=== PATIENT | male | born 1970 | race Native Hawaiian/Other Pacific Islander ===

== ENCOUNTER 2021-11-09 18:03 | Emergency (ER) | payer OTHER ==
[~2021-11-09] VITALS: Ht 177.8 cm; Wt 99.8 kg
[2021-11-09 19:14] LABS: PLATELET COUNT 264 K/uL (142-355)
[2021-11-09 19:20] LABS: POTASSIUM 3.3 mmol/L (3.6-5.2)
[2021-11-09 22:00] VITALS: BP 142/88; TEMP 98.6
== END 2021-11-09 22:00 | disposition home or self-care (01) ==
LOC: ED 18:03
PROVIDERS: Hospitalist
DX: K52.89 Other specified noninfective gastroenteritis and colitis (principal); R11.2 Nausea with vomiting, unspecified; R19.7 Diarrhea, unspecified; E86.0 Dehydration
CPT/HCPCS: 80053; 80320; 81002; 83690; 85027; 93005; 96360; 96365; 96375; 99284; J0696; J1885; J2270; J2405; Q9963